=== PATIENT | male | born 1980 | race Caucasian/White ===

== ENCOUNTER 2018-06-26 22:10 | Emergency (ER) | payer OTHER ==
[~2018-06-26] VITALS: Ht 180.3 cm; Wt 106.8 kg
[~2018-06-26 22:10] MED LIST: BACTERICIN30 GM TP; NOHOMEMEDS; VIVITROL380 MG/3.4 IM
[2018-06-26 22:48] LABS: HEMATOCRIT 42.7 % (38.0-50.0); HEMOGLOBIN 13.8 G/DL (12.5-16.6); MCHC 32.3 G/DL (30.0-36.0); PLATELET COUNT 218 K/uL (156-360); RBC DIS.WIDTH-CV 13.8 % (11.8-14.6); RBC DIS.WIDTH-SD 48.9 % (39-53); RED BLOOD COUNT 4.45 M/uL (4.00-5.50); WHITE BLOOD COUNT 10.8 K/uL (4.1-10.2)
[2018-06-26 22:59] LABS: ALBUMIN 4.2 g/dL (3.2-4.8); CHLORIDE 105 mEq/L (99-109); POTASSIUM 4.1 mEq/L (3.7-5.4); SODIUM 142 mEq/L (136-147)
[2018-06-26 23:02] LABS: GLUCOSE 110 mg/dL (70-99); TOTAL PROTEIN 7.5 g/dL (6.4-8.3)
[2018-06-26 23:03] LABS: TOTAL BILIRUBIN 0.3 mg/dL (0.0-1.0)
[2018-06-26 23:05] LABS: ALKALINE PHOSPHATASE 54 IU/L (3-129); CREATININE 1.1 mg/dL (0.6-1.3); GFR ESTIMATE (CALCULATED) > 59 mL/min/ (58.99-99999)
[2018-06-26 23:06] LABS: UREA NITROGEN (BUN) 12 mg/dL (9-23)
[2018-06-26 23:07] LABS: AST (GOT) 99 IU/L (2-34)
[2018-06-26 23:08] LABS: ALT (GPT) 215 IU/L (3-49)
[2018-06-26] MEDS ORDERED: MOTRIN800 MG PO (23:34)
[2018-06-26 23:42] VITALS: BP 129/73
== END 2018-06-26 23:42 | disposition home or self-care (01) ==
LOC: EME 22:10
DX: G56.03 Carpal tunnel syndrome, bilateral upper limbs (principal); F17.200 Nicotine dependence, unspecified, uncomplicated
CPT/HCPCS: 80053; 85027; 99281; 99284; J1100; J1885